=== PATIENT | male | born 1935 | race Caucasian/White ===

== ENCOUNTER 2017-04-27 14:10 | Emergency (ER) | payer OTHER ==
[~2017-04-27] VITALS: Ht 170.2 cm; Wt 86.1 kg
[~2017-04-27 14:10] MED LIST: NTRGSL/4 UT; SITA50TA3 PO; WARF3TAB6 PO
[2017-04-27 14:14] VITALS: TEMP 36.8; Ht 170.2 cm; Wt 86.1 kg
[2017-04-27 14:35] VITALS: O2SAT 97
[2017-04-27] MEDS ORDERED: FUROSEMIDE 40 MG/4 ML VIAL IV STA (14:41)
[2017-04-27 15:03] LABS: BASO % 0.7 %; BASO ABS # 0.04 K/uL (0-0.2); COMPLETE YES; EOS % 2.3 %; HEMATOCRIT 49.8 % (42-52); IG% 0.9 %; LYMPH % 25.5 %; LYMPH ABS # 1.47 K/uL (1.2-3.4); MEAN CELL VOLUME 89.7 fL (80-100); MEAN CORPUSCULAR HEMOGLOBIN 30.5 pg (25-34); MEAN CORPUSCULAR HGB CONC 33.9 g/dl (32-36); MEAN PLATELET VOLUME 9.7 fL (7.4-10.4); MONO % 10.1 %; NEUT % 60.5 %; PLATELET COUNT 143 K/uL (130-400); RED BLOOD COUNT 5.55 M/uL (4.7-6.1); WHITE BLOOD COUNT 5.77 K/uL (4.8-10.8)
--- NOTE | 2017-04-27 15:09 | DIAGNOSTIC IMAGING REPORT ---
CHEST ONE VIEW PORTABLE CLINICAL HISTORY: Shortness of breath and leg swelling COMPARISON STUDY: 06/20/2016 FINDINGS: The cardiac and mediastinal contours remain stable. There is mild superior mediastinal prominence. There is no overt failure. There is no focal pulmonary consolidation. There is minor basilar atelectasis. There are no significant pleural fusions.[ IMPRESSION: No active disease in the chest. Electronically signed by: Pilo Fowler M.D. 04/27/2017 3:07 PM Dictated Date/Time: 04/27/2017 3:06 PM
[2017-04-27 15:16] LABS: ALT/SGPT 22 U/L (12-78); AST/SGOT 13 U/L (15-37); BLOOD UREA NITROGEN 21 mg/dl (7-18); BUN/CREATININE RATIO 13.2 (10-20); CALCIUM 8.6 mg/dl (8.5-10.1); CARBON DIOXIDE 29 mmol/L (21-32); CHLORIDE 104 mmol/L (98-107); GLUCOSE 217 mg/dl (70-99); POTASSIUM 4.2 mmol/L (3.5-5.1); SODIUM 139 mmol/L (136-145)
[2017-04-27 15:22] LABS: ALB/GLOB RATIO 1.1 (0.9-2); ALKALINE PHOSPHATASE 81 U/L (45-117); CKMB/CK RATIO 4.5 (0-3.0)
[2017-04-27] MEDS ORDERED: ATV5X PO (16:00)
[2017-04-27] MEDS ORDERED: PRS5 PO (16:00)
[2017-04-27] MEDS ORDERED: CHOL1000 PO (16:00)
[2017-04-27] MEDS ORDERED: NVLGI/PEN SQ (16:00)
[2017-04-27] MEDS ORDERED: FLM4 PO (16:00)
[2017-04-27] MEDS ORDERED: LEVO25TA5 PO (16:00)
[2017-04-27] MEDS ORDERED: INSDGIPEN SQ (16:00)
[2017-04-27] MEDS ORDERED: SITA50TA PO (16:00)
[2017-04-27 16:48] VITALS: BP 108/74; PULSE 84; O2SAT 94
--- NOTE | 2017-04-27 18:29 | EMERGENCY ROOM VISIT NOTE ---
History Report prepared by Hussein: Sincere Fernandes Under the Supervision of: Dr. Panda Jang D.O. First contact with patient: 14:33 Chief Complaint: SHORTNESS OF BREATH Stated Complaint: SOB - SWLLING IN LEGS Nursing Triage Summary: triage note: pt reports "my feet are swollen." caregiver reports that pt has had increased shortness of breath bilat foot swelling since yesterday. History of Present Illness The patient is an 81 year old male who presents to the Emergency Room with complaints of constant shortness of breath starting this morning. Additionally the patient's family states that he has been having swollen legs for the past few days. The family states that the patient has a history of two heart attacks. The patient additionally almost fell a few days ago, and he has not been drinking very well recently. The patient does not smoke of use an inhaler, though he uses chewing tobacco. Additionally the patient was admitted in the hospital last year for a bad UTI, and he also was diagnosed with dementia. Also , he uses Flomax. Source of History: patient, family Onset: this morning Position: other Quality: other (shortness of breath) Timing: constant Note: Associated symptoms: Leg swelling Review of Systems See HPI for pertinent positives & negatives. A total of 10 systems reviewed and were otherwise negative. Past Medical & Surgical Medical Problems: (1) Coronary Atherosclerosis Of [place] Coronary Vessel (2) Diabetes (3) Hypertension Nos (4) [place] (myocardial infarction) (5) Tobacco Use Disorder Family History Diabetes mellitus FH: heart disease Hypertension Social History Smoking Status: Never Smoker Alcohol Use: none Housing Status: lives alone Occupation Status: retired Current/Historical Medications Scheduled Cholecalciferol (Vitamin D3), 2 TAB PO DAILY Finasteride (Finasteride), 1 TAB PO QPM Insulin Aspart (Novolog Flexpen), 8 UNITS SQ WM Insulin Glargine (Lantus Solostar), 16 UNITS SQ HS Levothyroxine Sodium (Levothyroxine Sodium), 1 TAB PO DAILYBB Nitroglycerin (Nitrostat), 0.4 MG UT PRN Sitagliptin Phosphate (Januvia), 1 TAB PO QAM Tamsulosin HCl (Tamsulosin HCl), 1 CAP PO QAM Scheduled PRN Lorazepam (Lorazepam), 1 TAB PO for Anxiety/Insomnia Allergies Coded Allergies: No Known Allergies (Unverified , 04/27/17) Physical Exam Vital Signs Date Time Temp Pulse Resp B/P (MAP) Pulse Ox O2 Delivery O2 Flow Rate FiO2 04/27/17 14:35 97 Room Air 04/27/17 14:30 82 04/27/17 14:21 83 04/27/17 14:14 36.8 80 26 122/80 94 Room Air Physical Exam CONSTITUTIONAL/VITAL SIGNS: Reviewed / noted above. GENERAL: Non-toxic in appearance. INTEGUMENTARY: Warm, dry, and [place]. HEAD: Normocephalic. EYES: without scleral icterus or trauma. ENT/OROPHARYNX: clear and moist. LYMPHADENOPATHY/NECK: Is supple without lymphadenopathy or meningismus. RESPIRATORY: Lungs clear and equal. CARDIOVASCULAR: Bilateral lower extremity edema. Regular rate and rhythm. GI/ABDOMEN: Soft and nontender. No organomegaly or pulsatile mass. No rebound or guarding. Normal bowel sounds. EXTREMITIES: Warm and well perfused. BACK: No CVA tenderness. NEUROLOGICAL: Intact without focal deficits. PSYCHIATRIC: normal affect. MUSCULOSKELETAL: Normally developed with good muscle tone. Medical Decision & Procedures ER Provider Diagnostic Interpretation: X ray results and stated below per my interpretation and radiology interpretation. CHEST ONE VIEW PORTABLE CLINICAL HISTORY: Shortness of breath and leg swelling COMPARISON STUDY: 06/20/2016 FINDINGS: The cardiac and mediastinal contours remain stable. There is mild superior mediastinal prominence. There is no overt failure. There is no focal pulmonary consolidation. There is minor basilar atelectasis. There are no significant pleural fusions.[ IMPRESSION: No active disease in the chest. Electronically signed by: Pilo Fowler M.D. 04/27/2017 3:07 PM Dictated Date/Time: 04/27/2017 3:06 PM Laboratory Results 04/27/17 14:30 Red Blood Count 5.55, Mean Corpuscular Volume 89.7, Mean Corpuscular Hemoglobin 30.5, Mean Corpuscular Hemoglobin Concent 33.9, Mean Platelet Volume 9.7, Neutrophils (%) (Auto) 60.5, Lymphocytes (%) (Auto) 25.5, Monocytes (%) (Auto) 10.1, Eosinophils (%) (Auto) 2.3, Basophils (%) (Auto) 0.7, Neutrophils # (Auto ) 3.50, Lymphocytes # (Auto) 1.47, Monocytes # (Auto) 0.58, Eosinophils # (Auto ) 0.13, Basophils # (Auto) 0.04 04/27/17 14:30 Test 04/27/17 14:30 White Blood Count 5.77 K/uL (4.8-10.8) Red Blood Count 5.55 M/uL (4.7-6.1) Hemoglobin 16.9 g/dL (14.0-18.0) Hematocrit 49.8 % (42-52) Mean Corpuscular Volume 89.7 fL (80-100) Mean Corpuscular Hemoglobin 30.5 pg (25-34) Mean Corpuscular Hemoglobin Concent 33.9 g/dl (32-36) Platelet Count 143 K/uL (130-400) Mean Platelet Volume 9.7 fL (7.4-10.4) Neutrophils (%) (Auto) 60.5 % Lymphocytes (%) (Auto) 25.5 % Monocytes (%) (Auto) 10.1 % Eosinophils (%) (Auto) 2.3 % Basophils (%) (Auto) 0.7 % Neutrophils # (Auto) 3.50 K/uL (1.4-6.5) Lymphocytes # (Auto) 1.47 K/uL (1.2-3.4) Monocytes # (Auto) 0.58 K/uL (0.11-0.59) Eosinophils # (Auto) 0.13 K/uL (0-0.5) Basophils # (Auto) 0.04 K/uL (0-0.2) RDW Standard Deviation 45.1 fL (36.4-46.3) RDW Coefficient of Variation 13.8 % (11.5-14.5) Immature Granulocyte % (Auto) 0.9 % Immature Granulocyte # (Auto) 0.05 K/uL (0.00-0.02) Anion Gap 6.0 mmol/L (3-11) Est Creatinine Clear Calc Drug Dose 37.3 ml/min Estimated GFR () 45.8 Estimated GFR (Non- 39.5 BUN/Creatinine Ratio 13.2 (10-20) Calcium Level 8.6 mg/dl (8.5-10.1) Total Bilirubin 0.6 mg/dl (0.2-1) Aspartate Amino Transf (AST/SGOT) 13 U/L (15-37) Alanine Aminotransferase (ALT/SGPT) 22 U/L (12-78) Alkaline Phosphatase 81 U/L (45-117) Total Creatine Kinase 85 U/L (39-308) Creatine Kinase MB 3.8 ng/ml (0.5-3.6) Creatine Kinase MB Ratio 4.5 (0-3.0) Troponin I < 0.015 ng/ml (0-0.045) Pro-B-Type Natriuretic Peptide 591 pg/ml (0-1800) Total Protein 6.8 gm/dl (6.4-8.2) Albumin 3.5 gm/dl (3.4-5.0) Globulin 3.3 gm/dl (2.5-4.0) Albumin/Globulin Ratio 1.1 (0.9-2) Laboratory results as stated above per my review. Medications Administered Medications (Trade) Dose Ordered Sig/Sharif Route Start Time Stop Time Status Last Admin Dose Admin Furosemide (Lasix Inj) 40 mg NOW STAT IV 04/27/17 14:41 04/27/17 14:42 DC 04/27/17 14:58 40 MG ECG Indication: SOB/dyspnea Rate (beats per minute): 75 Rhythm: sinus rhythm Findings: PVC, other (No acute injury) ED Course 1433: Previous medical records were reviewed. The patient was evaluated in room A12. A complete history and physical examination was performed. 1441: Lasix Inj 40mg IV 1620: On reevaluation, the patient is feeling well. I discussed the results and findings with the patient. He verbalized agreement of the treatment plan. He was discharged home. Medical Decision the differential was considered includes acute myocardial infarction, acute coronary syndrome, myocarditis, pericarditis, pericardial effusions /tamponade, esophageal perforation, pulmonary embolism, pneumonia, pneumothorax, cardiomyopathy, congestive heart, anemia , COPD/asthma exacerbation. This is an 81-year-old male who presents to the ED with a chief complaint of some shortness of breath. The patient's primary symptoms are that of lower extremity edema. The patient has some dementia and is unable to provide any significant history. The patient does report pedal edema but does not report that shortness of breath. The shortness of breath was per the caregiver, who is the [id number]. The patient is not on diuretics and the pedal edema was noticed yesterday by the [id number]. It is unclear exactly how long it is been going on. The caregiver was worried about congestive heart failure. The patient's exam reveals bilateral symmetric pedal edema. There is no other abnormalities on exam. Lungs were clear. CBC is normal, BUN is 21 and creatinine is 1.6. Complete metabolic panel was otherwise unremarkable. Glucose is 217. Troponin and BNP are within normal limits. Chest x-ray does not show acute disease. The patient was given IV Lasix while here. He was felt to be stable for discharge. Elevation and increase activity as recommended. The [id number] states that he is not very active and watches TV most of the day. He was felt to be stable for discharge and outpatient follow-up. Medication Reconcilliation Current Medication List: was personally reviewed by me Blood Pressure Screening Patient's blood pressure: Normal blood pressure Impression Primary Impression: Pedal edema Scribe Attestation The scribe's documentation has been prepared under my direction and personally reviewed by me in its entirety. I confirm that the note above accurately reflects all work, treatment, procedures, and medical decision making performed by me. Departure Information Dispostion Home / Self-Care Referrals Karl Enrique M.D. (PCP) Forms HOME CARE DOCUMENTATION FORM, IMPORTANT VISIT INFORMATION Patient Instructions ED Leg Swelling Bilateral, My [facility] Additional Instructions Your studies today did not suggest congestive heart failure. The edema is likely multifactorial. Recommend increase activity, elevation of legs, decreasing salt in diet and possibly compression stockings if symptoms persist. Follow-up with your doctor for recheck in one week. Return for any concerns or worsening.
== END 2017-04-27 16:50 | disposition home or self-care (01) ==
LOC: C.EDB 14:12 → C.EDA 16:50
DX: R60.9 Edema, unspecified (principal); I49.3 Ventricular premature depolarization; R06.02 Shortness of breath; I25.2 Old myocardial infarction; F17.200 Nicotine dependence, unspecified, uncomplicated; I25.10 Atherosclerotic heart disease of native coronary artery without angina pectoris; E11.9 Type 2 diabetes mellitus without complications; I10 Essential (primary) hypertension; F03.90 Unspecified dementia, unspecified severity, without behavioral disturbance, psychotic disturbance, mood disturbance, and anxiety; Z79.4 Long term (current) use of insulin; Z79.899 Other long term (current) drug therapy; Z87.440 Personal history of urinary (tract) infections; Z82.49 Family history of ischemic heart disease and other diseases of the circulatory system; Z83.3 Family history of diabetes mellitus

== ENCOUNTER 2017-05-20 14:29 | Observation (INO) | payer OTHER ==
[~2017-05-20] VITALS: Ht 170.2 cm; Wt 85.5 kg
[~2017-05-20 14:29] MED LIST changes: +ATV5X PO; +CHOL1000 PO; +FLM4 PO; +INSDGIPEN SQ; +LEVO25TA5 PO; +NVLGI/PEN SQ; +PRS5 PO; +SITA50TA PO; -SITA50TA3 PO; -WARF3TAB6 PO
[2017-05-20] MEDS ORDERED: FURO-85 PO (14:46)
[2017-05-20] MEDS ORDERED: POTA20TA16 PO (14:46)
[2017-05-20] MEDS ORDERED: SODIUM CHLORIDE 0.9% 1000ML 1,000 ML IV ONE (15:00)
--- NOTE | 2017-05-20 15:30 | DIAGNOSTIC IMAGING REPORT ---
SINGLE VIEW CHEST CLINICAL HISTORY: Dyspnea. FINDINGS: An AP, portable, upright chest radiograph is compared to study dated 04/27/2017. The examination is degraded by portable technique and patient rotation. The heart is enlarged and there is atherosclerotic calcification of the thoracic aorta. Chronic interstitial thickening is similar to previous. Subpleural opacities are identified in the right upper lung. Bibasilar atelectasis is observed. No large pleural effusion or pneumothorax is seen. The skeletal structures are osteopenic. The bony thorax is grossly intact. IMPRESSION: 1. Cardiomegaly without radiographic evidence of congestive failure. 2. There are patchy airspace opacities in the right upper lung. This likely represents a mild infectious/inflammatory pneumonitis. Clinical correlation will be required and radiographic follow-up to resolution is recommended. Electronically signed by: Shaquille Dixon M.D. 05/20/2017 3:29 PM Dictated Date/Time: 05/20/2017 3:27 PM
[2017-05-20 15:55] LABS: BASO % 0.4 %; BASO ABS # 0.03 K/uL (0-0.2); COMPLETE YES; EOS % 2.5 %; HEMATOCRIT 49.7 % (42-52); IG% 0.6 %; LYMPH % 20.9 %; LYMPH ABS # 1.41 K/uL (1.2-3.4); MEAN CELL VOLUME 89.4 fL (80-100); MEAN CORPUSCULAR HEMOGLOBIN 30.6 pg (25-34); MEAN CORPUSCULAR HGB CONC 34.2 g/dl (32-36); MEAN PLATELET VOLUME 9.9 fL (7.4-10.4); MONO % 12.1 %; NEUT % 63.5 %; PLATELET COUNT 145 K/uL (130-400); RED BLOOD COUNT 5.56 M/uL (4.7-6.1); WHITE BLOOD COUNT 6.76 K/uL (4.8-10.8)
[2017-05-20 16:08] LABS: URINE APPEARANCE CLEAR (CLEAR); URINE BILIRUBIN NEG (NEG); URINE COLOR YELLOW; URINE NITRITE NEG (NEG); URINE SPECIFIC GRAVITY 1.025 (1.000-1.030); UROBILINOGEN NEG (NEG)
--- NOTE | 2017-05-20 16:09 | DIAGNOSTIC IMAGING REPORT ---
HEAD CT NONCONTRAST CT DOSE: 638.56 mGycm HISTORY: hx subarachnoid hemorrhage; dizziness, "not self" TECHNIQUE: Multiaxial CT images of the head were performed without the use of intravenous contrast. Automated exposure control was utilized for this study. A dose lowering technique was utilized adhering to the principles of ALARA. Comparison: Head CT 06/20/2016. Findings: Mild mucosal thickening within the paranasal sinuses. A few opacified left inferior mastoid air cells. The calvarium and skull base are intact. No mass, midline shift, or acute infarct. Mild atrophy and microvascular ischemic changes are again noted. 4 mm punctate slightly hyperdense focus within the left middle cerebellar peduncle on image 7. There is a 5 mm slightly hyperdense focus within the left temporal lobe on image 14. There is a punctate hyperdense focus within the right high convexity in image 22. These remain stable compared the prior study and likely represent small cavernoma as. The trace subarachnoid hemorrhage within the left sylvian fissure has resolved. No acute hemorrhage identified. Prominent basilar artery remains stable. Impression: 1. No acute intracranial abnormality. 2. There are total of 3 punctate slightly hyperdense foci within the brain with the largest in the left temporal lobe measuring 5 mm. Given the long-term stability these are consistent with cavernomas. The trace subarachnoid hemorrhage within the left sylvian fissure on the prior study has resolved. No acute intracranial hemorrhage identified. 3. Mild sinus disease as described above. Electronically signed by: Sidney Street M.D. 05/20/2017 4:08 PM Dictated Date/Time: 05/20/2017 4:02 PM
[2017-05-20 16:14] LABS: ALT/SGPT 23 U/L (12-78); AST/SGOT 17 U/L (15-37); BLOOD UREA NITROGEN 21 mg/dl (7-18); BUN/CREATININE RATIO 12.5 (10-20); CALCIUM 8.7 mg/dl (8.5-10.1); CARBON DIOXIDE 28 mmol/L (21-32); CHLORIDE 103 mmol/L (98-107); GLUCOSE 186 mg/dl (70-99); SODIUM 138 mmol/L (136-145)
[2017-05-20 16:17] LABS: ALKALINE PHOSPHATASE 82 U/L (45-117)
[2017-05-20 16:18] LABS: MANUAL MICROSCOPIC REQUIRED? NO; REVIEW REQ? NO
[2017-05-20] MEDS ORDERED: MECLIZINE HCL 25 MG TAB PO STA (16:43)
--- NOTE | 2017-05-20 16:43 | EMERGENCY ROOM VISIT NOTE ---
ED Visit Note First contact with patient: 14:45 The patient was seen and examined with Cody Huang PA-C. I agree with the history, physical and findings. Please see the note for disposition and details. When the patient was symptomatic his daughter noted his heart rate was 45. This is much lower than usual. The patient is not currently on a beta norah. Cardiology was consulted and recommended observation for further diagnosis.
[2017-05-20] MEDS ORDERED: MECL1TAB42 PO (16:45)
[2017-05-20] MEDS ORDERED: ONDANSETRON INJ 2 MG/ML 2 ML VIAL IV PRN (18:30)
[2017-05-20] MEDS ORDERED: POLYETHYLENE (MIRALAX) 17 GM PACK PO PRN (18:30)
[2017-05-20] MEDS ORDERED: ACETAMINOPHEN 325 MG TAB PO PRN (18:30)
[2017-05-20] MEDS ORDERED: IV FLUIDS COMPLETED PRN (19:00)
[2017-05-20 19:21] LABS: PROTHROMBIN TIME (PATIENT) 10.9 SECONDS (9.0-12.0)
[2017-05-20 21:00] VITALS: BP 125/71; PULSE 73; TEMP 36.7; O2SAT 98; Ht 170.2 cm; Wt 85.5 kg
[2017-05-20] MEDS: PATIENT'S HEIGHT AND/OR WEIGHT NEEDED SCH ×2 (21:18→22:00)
[2017-05-20] MEDS ORDERED: POTASSIUM CHLORIDE 20 MEQ TABCR PO PRN (21:45)
[2017-05-20] MEDS ORDERED: GLUCOSE 10 TABS/TUBE PO PRN (21:45)
[2017-05-20] MEDS ORDERED: GLUCAGON FOR INJ 1 MG VIAL SQ PRN (21:45)
[2017-05-20] MEDS ORDERED: LORAZEPAM 0.5 MG TAB PO PRN (21:45)
[2017-05-20] MEDS ORDERED: FUROSEMIDE 20 MG TAB PO PRN (21:45)
[2017-05-20] MEDS ORDERED: GLUCOSE 40% GEL 15 GM TUBE PO PRN (21:45)
[2017-05-20] MEDS ORDERED: MECLIZINE HCL 25 MG TAB PO PRN (21:45)
[2017-05-20] MEDS ORDERED: FINASTERIDE 5 MG TAB PO SCH (21:45)
[2017-05-20] MEDS ORDERED: INSULIN GLARGINE SOLOSTAR 100 UNITS/ML 3 ML PEN SQ SCH (21:45)
[2017-05-20] MEDS ORDERED: DEXTROSE 50% 50 ML SYR IV PRN (21:45)
[2017-05-20] MEDS ORDERED: NITROGLYCERIN 0.4 MG SL PER TAB CHARGE UT PRN (21:45)
--- NOTE | 2017-05-20 22:16 | History and Physical ---
History & Physical Date & Time of Service: May 20, 2017 at 21:49 Chief Complaint: Bradycardia, Dizziness Primary Care Physician: Karl Enrique M.D. History of Present Illness Source: patient, family, clinic records, hospital records Patient is an 81 yo male who presented to the hospital for evaluation after he was found to be very dizzy at home today. His daughter in law states she checked his vitals and his BP was fine but his HR was in the 40's; she rechecked it again after several minutes and it was back up to normal but the patient continue to have dizziness. He had difficulty ambulating and had to grab onto objects to keep himself from falling. He states he feels much better now and wants to go home. He has not had any recent medication changes. The patients son and brother are there as well and state the patient is not one to complain unless things are really bothering him, but he has had no complaints in the days leading up to today. A few weeks ago he was seen in the ER for increased LE edema but no other symptoms. Patient denies any CP, SOB, palpitations, nausea, diaphoresis, SOLER, blurry vision. No recent changes to bowel or bladder habits. Appetite and weight have been stable. No recent falls or trauma. The patient has no other complaints. His family has not noticed any focal neurologic signs, he has dementia but he is at baseline with behavior and mentation. The patients daughter in law reports the patient is on finasteride and that seems to help lessen his habit of inappropriate groping of women, and she strongly encourages female staff to be aware that this has been an issue in the past, but the finasteride seems to help a bit. Past Medical/Surgical History Medical Problems: Ischemic cardiomyopathy Systolic CHF Subarachnoid hemorrhage Diabetes [place] (myocardial infarction) Hypothyroidism Right coronary artery thrombus Vascular dementia Family History Diabetes mellitus FH: heart disease Hypertension Social History Smoking Status: Former Smoker Occupational Status: retired Multi-Drug Resistant Organisms History of MDRO: No Allergies Coded Allergies: No Known Allergies (Unverified , 05/20/17) Home Medications Scheduled Cholecalciferol (Vitamin D3), 2,000 UNITS PO DAILY Finasteride (Finasteride), 5 MG PO QPM Insulin Aspart (Novolog Flexpen), 8 UNITS SQ WM Insulin Glargine (Lantus Solostar), 16 UNITS SQ HS Levothyroxine Sodium (Levothyroxine Sodium), 25 MCG PO DAILYBB Nitroglycerin (Nitrostat), 0.4 MG UT PRN Sitagliptin Phosphate (Januvia), 50 MG PO QAM Tamsulosin HCl (Tamsulosin HCl), 0.4 MG PO QAM Scheduled PRN Furosemide (Lasix), 20 MG PO UD PRN for EDEMA Lorazepam (Lorazepam), 1 TAB PO for Anxiety/Insomnia Potassium Ext Rel (Klor-Con), 20 MEQ PO UD PRN for EDEMA Review of Systems A full 10 systems were reviewed and the pertinent positives and negatives are listed above in HPI. Physical Exam Vital Signs Date Time Temp Pulse Resp B/P (MAP) Pulse Ox O2 Delivery O2 Flow Rate FiO2 05/20/17 21:00 36.7 73 18 125/71 98 Room Air 05/20/17 19:00 75 05/20/17 18:46 134/81 05/20/17 18:30 75 87 05/20/17 18:00 76 19 96 05/20/17 17:51 77 05/20/17 17:31 66 18 134/81 96 Room Air 05/20/17 15:33 76 22 116/78 96 Room Air 82 111/74 84 101/74 05/20/17 14:33 36.5 82 18 121/71 95 Room Air General Appearance: WD/WN, no apparent distress Head: normocephalic, atraumatic Eyes: PERRL, EOMI, sclerae normal, + pertinent finding (no conjunctivael erythema; eyelids within normal limits) ENT: hearing grossly normal Neck: supple, no adenopathy, no JVD, no carotid bruits, trachea midline Respiratory/Chest: chest non-tender, no respiratory distress, no accessory muscle use, + decreased breath sounds, + crackles Cardiovascular: regular rate, rhythm, no edema, no gallop, no JVD, + systolic murmur, + extra beats Abdomen/GI: normal bowel sounds, non tender, soft, + pertinent finding (no hepatosplenomegaly) Back: no CVA tenderness, no muscle spasm Extremities/Musculoskelatal: normal inspection, no calf tenderness, normal capillary refill, no pedal edema Neurologic/Psych: no motor/sensory deficits, alert, normal mood/affect, oriented x 3 Skin: normal color, warm/dry, no rash Diagnostics Laboratory Results Results Past 24 Hours Test 05/20/17 15:25 05/20/17 15:28 05/20/17 15:35 05/20/17 16:03 Range/Units Prothrombin Time 10.9 9.0-12.0 SECONDS Prothromb Time International Ratio 1.0 0.9-1.1 Activated Partial Thromboplast Time 27.0 21.0-31.0 SECONDS Partial Thromboplastin Ratio 1.0 White Blood Count 6.76 4.8-10.8 K/uL Red Blood Count 5.56 4.7-6.1 M/uL Hemoglobin 17.0 14.0-18.0 g/dL Hematocrit 49.7 42-52 % Mean Corpuscular Volume 89.4 80-100 fL Mean Corpuscular Hemoglobin 30.6 25-34 pg Mean Corpuscular Hemoglobin Concent 34.2 32-36 g/dl Platelet Count 145 130-400 K/uL Mean Platelet Volume 9.9 7.4-10.4 fL Neutrophils (%) (Auto) 63.5 % Lymphocytes (%) (Auto) 20.9 % Monocytes (%) (Auto) 12.1 % Eosinophils (%) (Auto) 2.5 % Basophils (%) (Auto) 0.4 % Neutrophils # (Auto) 4.29 1.4-6.5 K/uL Lymphocytes # (Auto) 1.41 1.2-3.4 K/uL Monocytes # (Auto) 0.82 0.11-0.59 K/uL Eosinophils # (Auto) 0.17 0-0.5 K/uL Basophils # (Auto) 0.03 0-0.2 K/uL RDW Standard Deviation 44.5 36.4-46.3 fL RDW Coefficient of Variation 13.7 11.5-14.5 % Immature Granulocyte % (Auto) 0.6 % Immature Granulocyte # (Auto) 0.04 0.00-0.02 K/uL Sodium Level 138 136-145 mmol/L Potassium Level 4.0 3.5-5.1 mmol/L Chloride Level 103 98-107 mmol/L Carbon Dioxide Level 28 21-32 mmol/L Anion Gap 7.0 3-11 mmol/L Blood Urea Nitrogen 21 7-18 mg/dl Creatinine 1.70 0.60-1.40 mg/dl Estimated GFR () 42.6 Estimated GFR (Non- 36.7 BUN/Creatinine Ratio 12.5 10-20 Random Glucose 186 70-99 mg/dl Calcium Level 8.7 8.5-10.1 mg/dl Total Bilirubin 0.6 0.2-1 mg/dl Direct Bilirubin < 0.1 0-0.2 mg/dl Aspartate Amino Transf (AST/SGOT) 17 15-37 U/L Alanine Aminotransferase (ALT/SGPT) 23 12-78 U/L Alkaline Phosphatase 82 45-117 U/L Total Protein 6.7 6.4-8.2 gm/dl Albumin 3.3 3.4-5.0 gm/dl Urine Color YELLOW Urine Appearance CLEAR CLEAR Urine pH 5.0 4.5-7.5 Urine Specific [place] 1.025 1.000-1.030 Urine Protein NEG NEG Urine Glucose (UA) 3+ NEG Urine Ketones TRACE NEG Urine Occult Blood NEG NEG Urine Nitrite NEG NEG Urine Bilirubin NEG NEG Urine Urobilinogen NEG NEG Urine Leukocyte Esterase NEG NEG Bedside Troponin I < 0.030 0-0.045 ng/ml Test 05/20/17 20:22 Range/Units Bedside Glucose 120 70-99 mg/dl Impression Assessment and Plan DIZZINESS: with bradycardia at home -monitor in tele -not on any BB or CCB -Cardiology consulted -obtain TTE -check serial CM -orthostatics negative x1 -has had similar episode on the past PREVIOUS HX OF HYPERTENSION: -monitor -not on any medications at home for this per the patient and family; patient has a hx of noncompliance CHRONIC SYSTOLIC HEART FAILURE SECONDARY TO ISCHEMIC CARDIOMYOPATHY WITH LAST KNOWN EJECTION FRACTION OF 20%: -appears euvolemic at this time -Heart failure is compensated -will obtain and TTE -daily weights and I's and O's HISTORY OF CORONARY ARTERY DISEASE WITH A HISTORY OF RIGHT CORONARY ARTERY THROMBUS. -no acute EKG changes -was on anticoagulation with Coumadin but was stopped a year ago following the subarachnoid hemorrhage DM TYPE II: -resume home meds januvia + insulin -place on sliding scale while admitted HYPOTHYROID: -continue levothyroxine BPH: -continue flomax and finasteride VASCULAR DEMENTIA: -has been stable; is on finasteride to help with inappropriate sexual behaviors which has lessened this behavior per family Advanced Directives Existing Living Will: No Existing Power of Metal Roofing Mechanic: Yes VTE Prophylaxis VTE Risk Assessment Done? Y/N: Yes Risk Level: Moderate
[2017-05-20] MEDS: INSULIN ASPART 100 UNITS/ML 3 ML PEN SQ SCH (22:30)
[2017-05-20] MEDS ORDERED: ENOXAPARIN 40 MG/0.4 ML SYR SC SCH (22:30)
[2017-05-20 23:48] VITALS: BP 103/74; PULSE 66; TEMP 36.8; O2SAT 95
--- NOTE | 2017-05-21 00:32 | EMERGENCY ROOM VISIT NOTE ---
ED Visit Note First contact with patient: 14:45 Chief Complaint: Dizzy and feel short of breath History of Present Illness: Mr. Jones is an 81-year-old white male who is brought into the ED via wheelchair accompanied by his [id number] complaining of dizziness and shortness of breath. Historically patient has a history of ischemic cardiac myopathy, subarachnoid hemorrhage, myocardial infarction and right coronary artery thrombus. Patient reports he has been feeling well over the last few days. Patient reports he awoke this morning and was feeling dizzy; he was unable to explain his symptoms of dizziness, and was feeling short of breath. Patient sister-in- law reports that when he was walking this morning he was using his arms to balance and support himself and he was breathing through pursed lips. After he started explaining his symptoms she checked his blood pressure with an automatic cuff and she reports that he was bradycardic with a heart rate in the mid to low 40s. She does report she checked this multiple times over an hour and he remained bradycardic but was not hypotensive. At this point in time she elected to bring her [id number] to the hospital for further evaluation and care. Currently patient is complaining of shortness of breath and dizziness. He reports ambulation and movements of the head increases his dizziness. He has not identified any alleviating factors related to the dizziness. He has not taken a medication for dizziness prior to arrival at the hospital. Patient denies any associated symptoms with his dizziness including headache, visual changes, hearing changes, tinnitus, upper respiratory tract symptoms, neck pain/ stiffness, cough, wheezing, chest pain, palpitations, abdominal pain, nausea, vomiting, extremity weakness/numbness/tingling. Additionally he complains of shortness of breath. He feels like ambulation increases his short of breath and when he relaxes he has relief of his shortness of breath. He denies previous similar episodes of shortness of breath. He has not taken any medications or therapies for shortness of breath. He denies symptoms noted above and palpitations, orthopnea, dependent edema, previous clots, claudication, cramping, recent surgery/extended travel. Review of Systems: As noted above in history of present illness. All body systems were reviewed and found to be negative as noted above. Past Medical History: As previously noted, systolic congestive heart failure, hypothyroidism, vascular dementia. Current Medications: Medications Dose Route/Sig Max Daily Dose Days Date Category Dose Instructions Klor-Con (Potassium Chloride) 20 Meq Tabcr 20 Meq PO UD PRN 05/20/17 Reported NEEDED FOR WEIGHT OVER 188 POUNDS Lasix (Furosemide) 20 Mg Tab 20 Mg PO UD PRN 05/20/17 Reported NEEDED FOR WEIGHT OVER 188 POUNDS Vitamin D3 (Cholecalciferol) 1,000 Unit Tab 2,000 Units PO DAILY 04/27/17 Reported Lantus Solostar (Insulin Glargine) 100 Unit/Ml Inj 16 Units SQ HS 04/27/17 Reported Novolog Flexpen (Insulin Aspart) 100 Units/Ml Inj 8 Units SQ WM 04/27/17 Reported Lorazepam 0.5 Mg Tab 1 Tab PO PRN 04/27/17 Reported Finasteride 5 Mg Tab 5 Mg PO QPM 04/27/17 Reported Tamsulosin HCl 0.4 Mg Cap 0.4 Mg PO QAM 04/27/17 Reported Levothyroxine Sodium 25 Mcg Tab 25 Mcg PO DAILYBB 04/27/17 Reported Januvia (Sitagliptin Phosphate) 50 Mg Tab 50 Mg PO QAM 04/27/17 Reported Nitrostat (Nitroglycerin) 0.4 Mg Tab 0.4 Mg UT PRN 02/23/15 Reported Allergies to Medications: Patient and family members denied. Social History: Patient is currently retired; he does chew tobacco; he lives with his brother and [id number] and feels safe in his home environment. Physical Examination: Vital Signs: Date Time Temp Pulse Resp B/P (MAP) Pulse Ox O2 Delivery O2 Flow Rate FiO2 05/20/17 18:30 75 87 05/20/17 18:00 76 19 96 05/20/17 17:51 77 05/20/17 17:31 66 18 134/81 96 Room Air 05/20/17 15:33 76 22 116/78 96 Room Air 82 111/74 84 101/74 05/20/17 14:33 36.5 82 18 121/71 95 Room Air GENERAL: 81-year-old male in no acute distress, nontoxic-appearing, afebrile and hemodynamically stable. NEUROLOGICAL: Awake, alert and oriented to person, place but not time. Answering questions appropriately and following commands. Cranial nerves II through XII grossly intact. Good hand eye coordination. No focal motor sensory deficits. SKIN: Warm, dry and pink. No soft tissue eruptions or trauma noted. HEENT: Atraumatic and normocephalic. Skull: No bony deformity, bony crepitus, swelling or ecchymosis. No raccoon's eyes or rosa signs. No drainage from the ears of the nostril; no hemotympanum. Face: No signs of facial trauma. PERRLA. EOMI with a few beats of horizontal nystagmus. Sclera white and conjunctiva pink. No malocclusion. No intraoral trauma. Airway patent. Speech is slightly pressured but normal. No lymphadenopathy. Trachea midline. No jugular venous distention. No carotid bruits. THORAX: Lungs sounds are clear to auscultation and only decreased in the bases. Equal bilaterally with symmetrical chest wall. No wheezing, rales or rhonchi. No crepitus, tenderness, subcutaneous air or deformities noted. HEART: Regular rate and rhythm. Soft systolic murmur heard over the left sternal border. No gallops, rubs or murmurs are appreciated. PMI is not displaced. No lifts, heaves or thrills. ABDOMEN: Flat, soft and nontender. Positive bowel sounds in all quadrants. No palpable masses, guarding, rigidity or organomegaly. EXTREMITIES: Moves all extremities well on command and with purpose. All distal neurovascular statuses are intact and equal bilaterally. No dependent edema. No calf tenderness or cords. ED Course: Patient is assessed as noted above. Patient's medications list were reviewed. Laboratory Testing: Test 05/20/17 15:25 05/20/17 15:28 05/20/17 15:35 05/20/17 16:03 Range/Units Prothrombin Time 10.9 9.0-12.0 SECONDS Prothromb Time International Ratio 1.0 0.9-1.1 Activated Partial Thromboplast Time 27.0 21.0-31.0 SECONDS Partial Thromboplastin Ratio 1.0 White Blood Count 6.76 4.8-10.8 K/uL Red Blood Count 5.56 4.7-6.1 M/uL Hemoglobin 17.0 14.0-18.0 g/dL Hematocrit 49.7 42-52 % Mean Corpuscular Volume 89.4 80-100 fL Mean Corpuscular Hemoglobin 30.6 25-34 pg Mean Corpuscular Hemoglobin Concent 34.2 32-36 g/dl Platelet Count 145 130-400 K/uL Mean Platelet Volume 9.9 7.4-10.4 fL Neutrophils (%) (Auto) 63.5 % Lymphocytes (%) (Auto) 20.9 % Monocytes (%) (Auto) 12.1 % Eosinophils (%) (Auto) 2.5 % Basophils (%) (Auto) 0.4 % Neutrophils # (Auto) 4.29 1.4-6.5 K/uL Lymphocytes # (Auto) 1.41 1.2-3.4 K/uL Monocytes # (Auto) 0.82 0.11-0.59 K/uL Eosinophils # (Auto) 0.17 0-0.5 K/uL Basophils # (Auto) 0.03 0-0.2 K/uL RDW Standard Deviation 44.5 36.4-46.3 fL RDW Coefficient of Variation 13.7 11.5-14.5 % Immature Granulocyte % (Auto) 0.6 % Immature Granulocyte # (Auto) 0.04 0.00-0.02 K/uL Sodium Level 138 136-145 mmol/L Potassium Level 4.0 3.5-5.1 mmol/L Chloride Level 103 98-107 mmol/L Carbon Dioxide Level 28 21-32 mmol/L Anion Gap 7.0 3-11 mmol/L Blood Urea Nitrogen 21 7-18 mg/dl Creatinine 1.70 0.60-1.40 mg/dl Estimated GFR () 42.6 Estimated GFR (Non- 36.7 BUN/Creatinine Ratio 12.5 10-20 Random Glucose 186 70-99 mg/dl Calcium Level 8.7 8.5-10.1 mg/dl Total Bilirubin 0.6 0.2-1 mg/dl Direct Bilirubin < 0.1 0-0.2 mg/dl Aspartate Amino Transf (AST/SGOT) 17 15-37 U/L Alanine Aminotransferase (ALT/SGPT) 23 12-78 U/L Alkaline Phosphatase 82 45-117 U/L Total Protein 6.7 6.4-8.2 gm/dl Albumin 3.3 3.4-5.0 gm/dl Urine Color YELLOW Urine Appearance CLEAR CLEAR Urine pH 5.0 4.5-7.5 Urine Specific Carlos 1.025 1.000-1.030 Urine Protein NEG NEG Urine Glucose (UA) 3+ NEG Urine Ketones TRACE NEG Urine Occult Blood NEG NEG Urine Nitrite NEG NEG Urine Bilirubin NEG NEG Urine Urobilinogen NEG NEG Urine Leukocyte Esterase NEG NEG Bedside Troponin I < 0.030 0-0.045 ng/ml Chest X-Rays: Were read by myself and the radiologist showing cardiomegaly without evidence of congestive failure and the radiologist notes patchy airspace opacities sees in the right upper lobe likely representing mild infectious/inflammatory pneumonitis. EKG: Was read by myself and reviewed with ; and shows sinus rhythm with frequent unifocal PVCs. Poor R-wave progression. No ischemic changes noted. Compared to previous and shows fusion complexes X is no longer present and Primus chore supraventricular complexes no longer present. There is a new left anterior fascicular block. Noncontrast Head CT: Was reviewed by myself and read by the radiologist showing no acute intracranial abnormalities. Subarachnoid hemorrhage resolved, mild sinus disease and 3 punctate hypodense foci within the brain with long-term stability consistent with cavernoma. Patient was hydrated with normal saline and given 25 mg of meclizine by mouth for dizziness. Patient had resolution of dizziness and shortness of breath. A pulse oximetry ambulation trial was performed and patient had no drops in his oxygen saturation saturations, heart rate and appeared to walk without difficulty. Patient's case was consulted with Dr. Baig, cardiology; he recommended observation stay and echocardiogram in the morning. Patient was educated about Dr. Baig's recommendation. [facility] Patient and family members were educated about today's findings. Clinical Impression: Bradycardia. Dizziness. Shortness of breath, resolved. Decision-Making: Initially my differential diagnosis I considered acute coronary syndrome, pneumothorax, pneumonia, pulmonary embolism, labyrinthitis, subarachnoid hemorrhage and other causes. Disposition and Plan: [facility] be [facility]; please see their notes and orders for final disposition and plan.
[2017-05-21 01:04] LABS: CKMB/CK RATIO 3.9 (0-3.0)
[2017-05-21 03:51] VITALS: BP 103/58; PULSE 71; TEMP 36.5; O2SAT 95
[2017-05-21] MEDS ORDERED: LEVOTHYROXINE 25 MCG TAB PO SCH (06:00)
[2017-05-21 06:19] LABS: BUN/CREATININE RATIO 15.9 (10-20); CALCIUM 8.3 mg/dl (8.5-10.1); CREATININE 1.3 mg/dl (0.60-1.40); POTASSIUM 3.8 mmol/L (3.5-5.1)
[2017-05-21 06:24] LABS: CHOLESTEROL/HDL RATIO 6.7
[2017-05-21] MEDS ORDERED: PERFLUTREN LIPID MICROSPHERE (DEFINITY) IV ONE (07:25)
[2017-05-21] MEDS: INSULIN ASPART 100 UNITS/ML 3 ML PEN SQ SCH ×2 (07:39→11:00)
[2017-05-21 07:51] VITALS: BP 100/56; PULSE 77; TEMP 36.8; O2SAT 93
[2017-05-21] MEDS ORDERED: CHOLECALCIFEROL 1000 INTER.UNIT TAB PO SCH (09:00)
[2017-05-21] MEDS ORDERED: TAMSULOSIN HCL 0.4 MG CAP PO SCH (09:00)
[2017-05-21] MEDS ORDERED: SITAGLIPTIN 25 MG TAB PO SCH (09:00)
--- NOTE | 2017-05-21 09:00 | ECHOCARDIOGRAM REPORT ---
*NOTICE TO RECEIVING [employer] This information is strictly Confidential and protected under [place] law. [place] law prohibits you from making any further disclosure of this information unless further disclosure is expressly permitted by the written consent of the person to whom it pertains or is authorized by law. A general authorization for the release of medical or other information is not sufficient for this purpose. Hospital accepts no responsibility if the information is made available to any other person, INCLUDING THE PATIENT. Interpretation Summary * Name: AKIN GARIBAY JR Study Date: 05/21/2017 06:53 AM BP: 103/58 mmHg * Patient Location: C.2E\S\E208\S\1 HR: 71 * : 1935 (M/d/yyyy) Gender: Male Height: 67 in * Age: 81 yrs Ethnicity: CA Weight: 188 lb * Ordering Physician: Laila Cottrell * Referring Physician: Self, Referred * Performed By: Kelly Giles RDCS * * Reason For Study: SYNCOPE * BSA: 2.0 m2 * -- Conclusions -- * Mildly dilated LV chamber size with global wall thinning. * Severely reduced LV systolic function with severe global hypokinesis, EF 20-25%. * There is a large apical thrombus. * Mild to moderate mitral regurgitation. Procedure Details * A contrast injection of Definity was performed to improve assessment of LV function. * Contrast was injected into an intravenous site in the left arm. * One vial of Definity ultrasound contrast was diluted in normal saline to a total volume of 10 ml. A total of '2' ml of solution was administered during imaging. * Lot # [id number] of Definity utilized for procedure. * Expiration date JUN 30. * The attending nurse who injected the contrast agent was STEWART KELSEY. Left Ventricle * The left ventricle is mildly dilated. * There is a large apical thrombus. * There is global thinning of the left ventricular martinez. * Ejection Fraction = 20-25%. * Left ventricular systolic function is severely reduced. * There is severe global hypokinesis of the left ventricle. Right Ventricle * The right ventricular cavity size is normal (basal dimension <4.2 cm in right ventricular apical 4-chamber view). * The right ventricular systolic function is normal as assessed by tricuspid annular plane systolic excursion (TAPSE) (normal >1.5 cm). Atria * The left atrial size is normal. * Right atrial size is normal. * No ASD detected; PFO is not assessed. Mitral Valve * The mitral valve anatomy is normal. * There is no mitral valve stenosis. * There is mild to moderate mitral regurgitation. Tricuspid Valve * The tricuspid valve is normal in structure and function. Aortic Valve * The aortic valve is normal in structure and function. Pulmonic Valve * The pulmonary valve is not well seen, but the Doppler examination is normal without significant regurgitation or stenosis. Great Vessels * The aortic root is normal size. Pericardium/Pleural * There is no pericardial effusion. MMode 2D Measurements and Calculations IVSd 1.1 cm IVSs 1.5 cm LVIDd 4.7 cm LVIDs 3.8 cm LVPWd 0.95 cm LVPWs 1.7 cm IVS/LVPW 1.1 FS 19.2 % EDV(Teich) 100.7 ml ESV(Teich) 60.7 ml EF(Teich) 39.6 % EDV(cubed) 101.6 ml ESV(cubed) 53.5 ml EF(cubed) 47.3 % % IVS thick 38.7 % % LVPW thick 79.6 % LV mass(C)d 166.8 grams LV mass(C)dI 84.7 grams/m\S\2 LV mass(C)s 239.6 grams LV mass(C)sI 121.6 grams/m\S\2 SV(Teich) 39.9 ml SI(Teich) 20.3 ml/m\S\2 SV(cubed) 48.1 ml SI(cubed) 24.4 ml/m\S\2 Ao root diam 3.6 cm Ao root area 10.4 cm\S\2 LA dimension 3.5 cm LA/Ao 0.96 LVAd ap4 35.0 cm\S\2 LVLd ap4 9.0 cm EDV(MOD-sp4) 112.6 ml EDV(sp4-el) 115.4 ml LVAs ap4 26.7 cm\S\2 LVLs ap4 8.7 cm ESV(MOD-sp4) 67.7 ml ESV(sp4-el) 69.8 ml EF(MOD-sp4) 39.9 % EF(sp4-el) 39.5 % LVAd ap2 38.0 cm\S\2 LVLd ap2 9.0 cm EDV(MOD-sp2) 129.3 ml EDV(sp2-el) 135.8 ml LVAs ap2 28.7 cm\S\2 LVLs ap2 8.5 cm ESV(MOD-sp2) 77.3 ml ESV(sp2-el) 82.3 ml EF(MOD-sp2) 40.2 % EF(sp2-el) 39.4 % LVLd %diff 0.30 % EDV(MOD-bp) 122.5 ml LVLs %diff -2.27 % ESV(MOD-bp) 72.4 ml EF(MOD-bp) 40.9 % SV(MOD-sp4) 44.9 ml SI(MOD-sp4) 22.8 ml/m\S\2 SV(MOD-sp2) 52.0 ml SI(MOD-sp2) 26.4 ml/m\S\2 SV(MOD-bp) 50.0 ml SI(MOD-bp) 25.4 ml/m\S\2 SV(sp4-el) 45.5 ml SI(sp4-el) 23.1 ml/m\S\2 SV(sp2-el) 53.5 ml SI(sp2-el) 27.2 ml/m\S\2 Doppler Measurements and Calculations MV E max shraron 62.5 cm/sec MV dec time 0.30 sec Ao V2 max 95.1 cm/sec Ao max PG 3.6 mmHg Ao max PG (full) 1.3 mmHg LV V1 max PG 2.3 mmHg LV V1 max 76.2 cm/sec
--- NOTE | 2017-05-21 10:58 | CARDIOLOGY CONSULTATION ---
DATE OF CONSULTATION: 05/21/2017 [facility]ULT[facility] FOR: [facility] REASON FOR CONSULTATION: Abnormal echocardiogram. HISTORY OF PRESENT ILLNESS: Mr. Jones is an 81-year-old male patient with a history of advanced dementia. The patient is not a good historian and the information is taken from the medical record. I last saw this patient in 2013. At that time, he presented late with an inferior posterior wall myocardial infarction. The patient underwent a cardiac catheterization at that time which revealed significant 2-vessel coronary artery disease with evidence of a recent infarct to the right coronary artery with heavy thrombus burden. The patient was also noted to have an ischemic cardiomyopathy. Recommendations were for medical management including long-term anticoagulation with warfarin. Unfortunately, following that admission, the patient was lost to followup. He was brought by his family to the Emergency Department with complaints of dizziness. In reviewing the records, he was admitted to [facility] in 2015 with a diagnosis of disorientation. At first it was thought that he had a subarachnoid hemorrhage, but a later MRI indicated cerebral amyloid angiopathy. At the time of that admission, the patient was not taking his warfarin. It was recommended that he stay off of anticoagulation. 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 ALLERGIES: No known medical allergies. PAST MEDICAL HISTORY: Including history of chief complaint, the patient also has a history of dyslipidemia, benign prostatic hypertrophy with urinary tract symptoms. He is a type 2 diabetic. SOCIAL HISTORY: He lives with his family. He is currently a nonsmoker. REVIEW OF SYSTEMS: A 10-point review of systems is negative except for the history of chief complaint. PHYSICAL EXAMINATION: GENERAL: He is alert but disoriented and nonverbal. VITAL SIGNS: Blood pressure is 120/70, pulse is regular at 70, he is afebrile. HEENT: He is normocephalic. Pupils are equal and reactive to light. Extraocular muscles are intact bilaterally. NECK: The neck veins are flat. Carotids have good upstrokes bilaterally without bruits. Thyroid is nonpalpable. RESPIRATORY: Breath sounds equal bilaterally and clear to auscultation. CARDIOVASCULAR: Heart has a regular rhythm. There are no systolic murmurs or rubs. No S3 or S4. GASTROINTESTINAL: Abdomen is soft, nontender without organomegaly. EXTREMITIES: Free of edema, digital clubbing, or cyanosis. NEUROLOGIC: Grossly intact. SKIN: Warm to touch. LYMPH NODES: Negative to palpation. LABORATORY DATA: Echocardiogram reveals an ischemic cardiomyopathy with evidence of an LV thrombus. The patient is currently in a sinus mechanism on the telemetry. Hemoglobin is 17, potassium is 3.8, creatinine is 1.3. Troponins are negative. IMPRESSION: 1. 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 2. Ischemic cardiomyopathy with evidence of left ventricular thrombus. 3. Diabetes mellitus. RECOMMENDATIONS: Due to the patient's cerebral amyloid angiopathy and possible previous history of a subarachnoid hemorrhage, I do not believe that he is a candidate for long-term anticoagulation. Neurology consult may help in this situation. From a cardiac standpoint, he appears to be stable. He has had no significant cardiac arrhythmias on the telemetry. I would recommend continued medical management for this patient.
[2017-05-21 11:52] VITALS: BP 94/56; PULSE 80; TEMP 36.8; O2SAT 95
--- NOTE | 2017-05-21 13:57 | Procedure Note ---
Post-Mod Sedation Assessment General Date of Moderate Sedation May 21, 2017. Vital Signs: Vital Signs Past 12 Hours Date Time Temp Pulse Resp B/P (MAP) Pulse Ox O2 Delivery O2 Flow Rate FiO2 05/21/17 11:52 36.8 80 18 94/56 (69) 95 Room Air 05/21/17 08:30 Room Air 05/21/17 07:51 36.8 77 16 100/56 (71) 93 Room Air 05/21/17 04:00 Room Air 05/21/17 03:51 36.5 71 16 103/58 (73) 95 Room Air Review - Discharge Criteria Vital Signs Stable: Yes Alert/Oriented/Conversant: Yes Returned to Baseline Mental St: Yes Pain/Discomfort/Absent/Minimal: Yes Normal/Baseline Respirations: Yes Active Bleeding?: No Pt Received D/C Instructions: N/A Prescriptions Given: None Specific Proced. D/C Criteria Distal Pulses Present (Cardiac: N/A Groin site assessed-Card Cath: N/A Voided Prior To Discharge: N/A Discharged Patients Adult Escort/Transportation: N/A
--- NOTE | 2017-05-21 13:58 | [facility] Post Operative Brief Note ---
Immediate Operative Summary Operative Date May 21, 2017. Pre-Operative Diagnosis sss Post-Operative Diagnosis same Procedure(s) Performed dual chamber rate responsive permanent pacemaker under fluroscopic guidance Surgeon antonina mo Client Success Director Surgeon(s) none Estimated Blood Loss <10cc Findings see official report Fluids (cc crystalloids) 100cc Specimens none Drains none Anesthesia 5mg versed and 125mcg fentantyl Complication(s) None Disposition PCU
[2017-05-21] MEDS ORDERED: ACETAMINOPHEN/CODEINE 300/30MG TAB PO PRN (14:00)
--- NOTE | 2017-05-21 14:03 | Progress Note ---
Internal Med Progress Note Date of Service: May 21, 2017. Provider Documentation: SUBJECTIVE: patient poor historian, cannot give history about his health, not oriented to the year, able to follow commands. Denies changes in vision Denies headache Denies nausea Denies vomiting Denies chest pain Denies shortness of breath Denies abdominal pain Denies diarrhea Denies dysuria OBJECTIVE: Exam: General-NAD, speaking in full sentences, on room air Eyes- EOMI, no jaundice ENT-nontender, no oral or nasal exudates Neck- nontender, no JVD Lungs- no crackles, no wheezing on lung auscultation. no use of accessory muscles Heart- regular rate, no murmurs appreciated Abdomen- soft, nontender to palpation Extremities- no edema of extremities Neuro- no focal neurological deficits ASSESSMENT & PLAN: Patient is an 81 yo male who presented to the hospital on 05/20/2017 after found to be feeling "dizzy" and collaborative history from patient's daughter in law of concern for bradycardia in the 40s. Patient placed on observation on telemetry after ED presentation. Telemetry monitoring did not reveal bradycardia. Throughout the telemetry studies heart rate generally in the 70s. Patient had transthoracic echo in the AM of 05/21/17. Was found to have an atrial thrombus. Patient is a poor historian who does not recall history of subarachnoid hemorrhage a year ago when treated in [facility] in [place]. Head CT on this admission did not show acute intracranial bleed on this admission. After consultation with cardiology and neurology services, it was determined that patient's risk of bleeding if started on anticoagulation is high. Despite the presence of atrial thrombus, patient's history of intracranial bleed and apparent inability to follow directions possible dementia precluded him from receiving anticoagulation for the thrombus. Patient's physical exam is benign, Patient able to breath on room air without shortness of breath, able to ambulate without syncopal symptoms. Disposition: without evidence for bradycardia, and since measures to anticoagulate patient may cause bleeding in a patient with previous history of subarachnoid hemorrhage there is no further hospital interventions at this time , patient can be discharged to home in care of his family and follow up with his primary care doctor Dr. Enrique [facility] 05/25/2017 11: 00 AM Below are the following studies performed on this admission and annotated results Chest X Ray An AP, portable, upright chest radiograph is compared to study dated 04/27/2017. The examination is degraded by portable technique and patient rotation. The heart is enlarged and there is atherosclerotic calcification of the thoracic aorta. Chronic interstitial thickening is similar to previous. Subpleural opacities are identified in the right upper lung. Bibasilar atelectasis is observed. No large pleural effusion or pneumothorax is seen. The skeletal structures are osteopenic. The bony thorax is grossly intact Head CT 1. No acute intracranial abnormality. 2. There are total of 3 punctate slightly hyperdense foci within the brain with the largest in the left temporal lobe measuring 5 mm. Given the long-term stability these are consistent with cavernomas. The trace subarachnoid hemorrhage within the left sylvian fissure on the prior study has resolved. No acute intracranial hemorrhage identified. 3. Mild sinus disease as described above. Transthoracic echo * Mildly dilated LV chamber size with global wall thinning. * Severely reduced LV systolic function with severe global hypokinesis, EF 20 -25%. * There is a large apical thrombus. * Mild to moderate mitral regurgitation. Left Ventricle * The left ventricle is mildly dilated. * There is a large apical thrombus. * There is global thinning of the left ventricular martinez. * Ejection Fraction = 20-25%. * Left ventricular systolic function is severely reduced. * There is severe global hypokinesis of the left ventricle. Right Ventricle * The right ventricular cavity size is normal (basal dimension <4.2 cm in right ventricular apical 4-chamber view). * The right ventricular systolic function is normal as assessed by tricuspid annular plane systolic excursion (TAPSE) (normal >1.5 cm). Atria * The left atrial size is normal. * Right atrial size is normal. * No ASD detected; PFO is not assessed. Mitral Valve * The mitral valve anatomy is normal. * There is no mitral valve stenosis. * There is mild to moderate mitral regurgitation. Tricuspid Valve * The tricuspid valve is normal in structure and function. Aortic Valve * The aortic valve is normal in structure and function. Pulmonic Valve * The pulmonary valve is not well seen, but the Doppler examination is normal without significant regurgitation or stenosis. Great Vessels * The aortic root is normal size. Pericardium/Pleural * There is no pericardial effusion. Vital Signs: Date Time Temp Pulse Resp B/P (MAP) Pulse Ox O2 Delivery O2 Flow Rate FiO2 05/21/17 11:52 36.8 80 18 94/56 (69) 95 Room Air 05/21/17 08:30 Room Air 05/21/17 07:51 36.8 77 16 100/56 (71) 93 Room Air 05/21/17 04:00 Room Air 05/21/17 03:51 36.5 71 16 103/58 (73) 95 Room Air 05/21/17 00:01 Room Air 05/20/17 23:48 36.8 66 18 103/74 (84) 95 Room Air 05/20/17 21:00 36.7 73 18 125/71 98 Room Air 05/20/17 19:00 75 05/20/17 18:46 134/81 05/20/17 18:30 75 87 05/20/17 18:00 76 19 96 05/20/17 17:51 77 05/20/17 17:31 66 18 134/81 96 Room Air 05/20/17 15:33 76 22 116/78 96 Room Air 82 111/74 84 101/74 05/20/17 14:33 36.5 82 18 121/71 95 Room Air Lab Results: Results Past 24 Hours Test 05/20/17 15:25 05/20/17 15:28 05/20/17 15:35 05/20/17 16:03 Range/Units Prothrombin Time 10.9 9.0-12.0 SECONDS Prothromb Time International Ratio 1.0 0.9-1.1 Activated Partial Thromboplast Time 27.0 21.0-31.0 SECONDS Partial Thromboplastin Ratio 1.0 White Blood Count 6.76 4.8-10.8 K/uL Red Blood Count 5.56 4.7-6.1 M/uL Hemoglobin 17.0 14.0-18.0 g/dL Hematocrit 49.7 42-52 % Mean Corpuscular Volume 89.4 80-100 fL Mean Corpuscular Hemoglobin 30.6 25-34 pg Mean Corpuscular Hemoglobin Concent 34.2 32-36 g/dl Platelet Count 145 130-400 K/uL Mean Platelet Volume 9.9 7.4-10.4 fL Neutrophils (%) (Auto) 63.5 % Lymphocytes (%) (Auto) 20.9 % Monocytes (%) (Auto) 12.1 % Eosinophils (%) (Auto) 2.5 % Basophils (%) (Auto) 0.4 % Neutrophils # (Auto) 4.29 1.4-6.5 K/uL Lymphocytes # (Auto) 1.41 1.2-3.4 K/uL Monocytes # (Auto) 0.82 0.11-0.59 K/uL Eosinophils # (Auto) 0.17 0-0.5 K/uL Basophils # (Auto) 0.03 0-0.2 K/uL RDW Standard Deviation 44.5 36.4-46.3 fL RDW Coefficient of Variation 13.7 11.5-14.5 % Immature Granulocyte % (Auto) 0.6 % Immature Granulocyte # (Auto) 0.04 0.00-0.02 K/uL Sodium Level 138 136-145 mmol/L Potassium Level 4.0 3.5-5.1 mmol/L Chloride Level 103 98-107 mmol/L Carbon Dioxide Level 28 21-32 mmol/L Anion Gap 7.0 3-11 mmol/L Blood Urea Nitrogen 21 7-18 mg/dl Creatinine 1.70 0.60-1.40 mg/dl Estimated GFR () 42.6 Estimated GFR (Non- 36.7 BUN/Creatinine Ratio 12.5 10-20 Random Glucose 186 70-99 mg/dl Calcium Level 8.7 8.5-10.1 mg/dl Total Bilirubin 0.6 0.2-1 mg/dl Direct Bilirubin < 0.1 0-0.2 mg/dl Aspartate Amino Transf (AST/SGOT) 17 15-37 U/L Alanine Aminotransferase (ALT/SGPT) 23 12-78 U/L Alkaline Phosphatase 82 45-117 U/L Total Protein 6.7 6.4-8.2 gm/dl Albumin 3.3 3.4-5.0 gm/dl Urine Color YELLOW Urine Appearance CLEAR CLEAR Urine pH 5.0 4.5-7.5 Urine Specific Hunter 1.025 1.000-1.030 Urine Protein NEG NEG Urine Glucose (UA) 3+ NEG Urine Ketones TRACE NEG Urine Occult Blood NEG NEG Urine Nitrite NEG NEG Urine Bilirubin NEG NEG Urine Urobilinogen NEG NEG Urine Leukocyte Esterase NEG NEG Bedside Troponin I < 0.030 0-0.045 ng/ml Test 05/20/17 20:22 05/21/17 00:14 05/21/17 05:26 05/21/17 08:38 Range/Units Bedside Glucose 120 70-99 mg/dl Total Creatine Kinase 79 63 39-308 U/L Creatine Kinase MB 3.1 2.5 0.5-3.6 ng/ml Creatine Kinase MB Ratio 3.9 4.0 0-3.0 Troponin I < 0.015 < 0.015 0-0.045 ng/ml Chemistry Specimen Hemolysis Sodium Level 141 136-145 mmol/L Potassium Level 3.8 3.5-5.1 mmol/L Chloride Level 108 98-107 mmol/L Carbon Dioxide Level 26 21-32 mmol/L Anion Gap 7.0 3-11 mmol/L Blood Urea Nitrogen 21 7-18 mg/dl Creatinine 1.30 0.60-1.40 mg/dl Est Creatinine Clear Calc Drug Dose 45.6 ml/min Estimated GFR () 58.9 Estimated GFR (Non- 50.8 BUN/Creatinine Ratio 15.9 10-20 Random Glucose 139 70-99 mg/dl Calcium Level 8.3 8.5-10.1 mg/dl Triglycerides Level 218 0-150 mg/dl Cholesterol Level 180 0-200 mg/dl HDL Cholesterol 27 mg/dl LDL Cholesterol, Calculated 109 mg/dl VLDL Cholesterol, Calculated 44 mg/dl Cholesterol/HDL Ratio 6.7 Test 05/21/17 13:06 Range/Units Bedside Glucose 167 70-99 mg/dl
[2017-05-21 14:24] VITALS: BP 94/56; PULSE 80; TEMP 36.8; O2SAT 95
--- NOTE | 2017-05-21 14:26 | Discharge Instructions ---
Discharge Instructions Date of Service May 21, 2017. Admission Reason for Admission: Bradycardia, Dizziness Discharge Discharge Diagnosis / Problem: atrial thrombus, history of subarrachnoid hemorrhage Discharge Goals Goal(s): Learn about illness Activity Recommendations Activity Limitations: per Instructions/Follow-up section Lifting Limitations: gradually increase as tolerated Exercise/Sports Limitations: until after follow-up appointment . Instructions / Follow-Up Instructions / Follow-Up follow up appointment with your primary care doctor Karl Enrique [facility] Continue with home medications Current Hospital Diet Patient's current hospital diet: AHA Diet (Heart Healthy), Diabetes Type 2 Diet Discharge Diet Recommended Diet: Diabetes Type 2 Diet Procedures Procedures Performed: dual chamber rate responsive permanent pacemaker under fluroscopic guidance Pending Studies Studies pending at discharge: no Laboratory Results Lipid Panel Test 05/21/17 05:26 Range/Units Triglycerides Level 218 H 0-150 mg/dl Cholesterol Level 180 0-200 mg/dl HDL Cholesterol 27 mg/dl Cholesterol/HDL Ratio 6.7 LDL Cholesterol, Calculated 109 mg/dl Medical Emergencies . Who to Call and When: Medical Emergencies: If at any time you feel your situation is an emergency, please call 911 immediately. . Non-Emergent Contact Non-Emergency issues call your: Primary Care Provider (Karl Enrique MD) Call Non-Emergent contact if: you have any medication questions . . "Provider Documentation" section prepared by Hamilton Berry. . VTE Core Measure Inpt VTE Proph given/why not?: Contraindicated (contradindicated to be on pharmacological anticoagulation)
--- NOTE | 2017-05-21 14:29 | Discharge Summary ---
Discharge Summary Date of Service May 21, 2017. Discharge Summary Admission Date: May 20, 2017 at 18:36 Discharge Date: May 21, 2017 Discharge Disposition: Home Principal Diagnosis: atrial thrombus, history of subarachnoid hemorrhage, high risk of intracranial bleed if on anticoagulation Secondary Diagnoses/Problems: diabetes Medication Reconciliation Continued Medications: Cholecalciferol (Vitamin D3) 1,000 Unit Tab 2000 UNITS PO DAILY Finasteride (Finasteride) 5 Mg Tab 5 MG PO QPM Furosemide (Lasix) 20 Mg Tab 20 MG PO UD PRN for EDEMA NEEDED FOR WEIGHT OVER 188 POUNDS Insulin Aspart (Novolog Flexpen) 100 Units/Ml Inj 8 UNITS SQ WM Insulin Glargine (Lantus Solostar) 100 Unit/Ml Inj 16 UNITS SQ HS Levothyroxine Sodium (Levothyroxine Sodium) 25 Mcg Tab 25 MCG PO DAILYBB Lorazepam (Lorazepam) 0.5 Mg Tab 1 TAB PO PRN for Anxiety/Insomnia, #40 Meclizine Hcl (Meclizine Hcl) 25 Mg Tab 1 TAB PO TID PRN for Dizziness or Vertigo for 10 Days, #30 TAB Nitroglycerin (Nitrostat) 0.4 Mg Tab 0.4 MG UT PRN, BTL Potassium Ext Rel (Klor-Con) 20 Meq Tabcr 20 MEQ PO UD PRN for EDEMA NEEDED FOR WEIGHT OVER 188 POUNDS Sitagliptin Phosphate (Januvia) 50 Mg Tab 50 MG PO QAM Tamsulosin HCl (Tamsulosin HCl) 0.4 Mg Cap 0.4 MG PO QAM Admission Information HPI (per Admitting provider): Patient is an 81 yo male who presented to the hospital for evaluation after he was found to be very dizzy at home today. His daughter in law states she checked his vitals and his BP was fine but his HR was in the 40's; she rechecked it again after several minutes and it was back up to normal but the patient continue to have dizziness. He had difficulty ambulating and had to grab onto objects to keep himself from falling. He states he feels much better now and wants to go home. He has not had any recent medication changes. The patients son and brother are there as well and state the patient is not one to complain unless things are really bothering him, but he has had no complaints in the days leading up to today. A few weeks ago he was seen in the ER for increased LE edema but no other symptoms. Patient denies any CP, SOB, palpitations, nausea, diaphoresis, SOLER, blurry vision. No recent changes to bowel or bladder habits. Appetite and weight have been stable. No recent falls or trauma. The patient has no other complaints. His family has not noticed any focal neurologic signs, he has dementia but he is at baseline with behavior and mentation. The patients daughter in law reports the patient is on finasteride and that seems to help lessen his habit of inappropriate groping of women, and she strongly encourages female staff to be aware that this has been an issue in the past, but the finasteride seems to help a bit. Physical Exam (per Admitting): General Appearance: WD/WN, no apparent distress Head: normocephalic, atraumatic Eyes: PERRL, EOMI, sclerae normal, + pertinent finding (no conjunctivael erythema; eyelids within normal limits) ENT: hearing grossly normal Neck: supple, no adenopathy, no JVD, no carotid bruits, trachea midline Respiratory/Chest: chest non-tender, no respiratory distress, no accessory muscle use, + decreased breath sounds, + crackles Cardiovascular: regular rate, rhythm, no edema, no gallop, no JVD, + systolic murmur, + extra beats Abdomen/GI: normal bowel sounds, non tender, soft, + pertinent finding (no hepatosplenomegaly) Back: no CVA tenderness, no muscle spasm Extremities/Musculoskelatal: normal inspection, no calf tenderness, normal capillary refill, no pedal edema Neurologic/Psych: no motor/sensory deficits, alert, normal mood/affect, oriented x 3 Skin: normal color, warm/dry, no rash Hospital Course Patient is an 81 yo male who presented to the hospital on 05/20/2017 after found to be feeling "dizzy" and collaborative history from patient's daughter in law of concern for bradycardia in the 40s. Patient placed on observation on telemetry after ED presentation. Telemetry monitoring did not reveal bradycardia. Throughout the telemetry studies heart rate generally in the 70s. Patient had transthoracic echo in the AM of 05/21/17. Was found to have an atrial thrombus. Patient is a poor historian who does not recall history of subarachnoid hemorrhage a year ago when treated in [facility] in [place]. Head CT on this admission did not show acute intracranial bleed on this admission. After consultation with cardiology and neurology services, it was determined that patient's risk of bleeding if started on anticoagulation is high. Despite the presence of atrial thrombus, patient's history of intracranial bleed and apparent inability to follow directions possible dementia precluded him from receiving anticoagulation for the thrombus. Patient's physical exam is benign, Patient able to breath on room air without shortness of breath, able to ambulate without syncopal symptoms. Disposition: without evidence for bradycardia, and since measures to anticoagulate patient may cause bleeding in a patient with previous history of subarachnoid hemorrhage there is no further hospital interventions at this time , patient can be discharged to home in care of his family and follow up with his primary care doctor Dr. Enrique [facility] 05/25/2017 11: 00 AM Below are the following studies performed on this admission and annotated results Chest X Ray An AP, portable, upright chest radiograph is compared to study dated 04/27/2017. The examination is degraded by portable technique and patient rotation. The heart is enlarged and there is atherosclerotic calcification of the thoracic aorta. Chronic interstitial thickening is similar to previous. Subpleural opacities are identified in the right upper lung. Bibasilar atelectasis is observed. No large pleural effusion or pneumothorax is seen. The skeletal structures are osteopenic. The bony thorax is grossly intact Head CT 1. No acute intracranial abnormality. 2. There are total of 3 punctate slightly hyperdense foci within the brain with the largest in the left temporal lobe measuring 5 mm. Given the long-term stability these are consistent with cavernomas. The trace subarachnoid hemorrhage within the left sylvian fissure on the prior study has resolved. No acute intracranial hemorrhage identified. 3. Mild sinus disease as described above. Transthoracic echo * Mildly dilated LV chamber size with global wall thinning. * Severely reduced LV systolic function with severe global hypokinesis, EF 20 -25%. * There is a large apical thrombus. * Mild to moderate mitral regurgitation. Left Ventricle * The left ventricle is mildly dilated. * There is a large apical thrombus. * There is global thinning of the left ventricular martinez. * Ejection Fraction = 20-25%. * Left ventricular systolic function is severely reduced. * There is severe global hypokinesis of the left ventricle. Right Ventricle * The right ventricular cavity size is normal (basal dimension <4.2 cm in right ventricular apical 4-chamber view). * The right ventricular systolic function is normal as assessed by tricuspid annular plane systolic excursion (TAPSE) (normal >1.5 cm). Atria * The left atrial size is normal. * Right atrial size is normal. * No ASD detected; PFO is not assessed. Mitral Valve * The mitral valve anatomy is normal. * There is no mitral valve stenosis. * There is mild to moderate mitral regurgitation. Tricuspid Valve * The tricuspid valve is normal in structure and function. Aortic Valve * The aortic valve is normal in structure and function. Pulmonic Valve * The pulmonary valve is not well seen, but the Doppler examination is normal without significant regurgitation or stenosis. Great Vessels * The aortic root is normal size. Pericardium/Pleural * There is no pericardial effusion. Total time spent on discharge = This includes examination of the patient, discharge planning, medication reconciliation, and communication with other providers. Discharge Instructions discharged to home in care of his family and follow up with his primary care doctor Dr. Enrique [facility] 05/25/2017 11:00 AM
[2017-05-21] MEDS ORDERED: METOPROLOL TARTRATE 25 MG TAB PO ONE (20:00)
--- NOTE | 2017-05-21 20:57 | CONSULTATION REPORT ---
DATE OF CONSULTATION: 05/21/2017 HISTORY OF PRESENT ILLNESS: I was asked by Dr. Hamilton Berry to give my opinion regarding anticoagulation in this patient. I had reviewed his [facility] chart as well as his inpatient chart and the patient was discharged per his desire prior to my seeing him. Dr. Berry asked me to render an opinion having reviewed his chart. He is an 81-year-old, who was admitted to the hospital yesterday for dizziness. His blood pressure was apparently normal and heart rate in the 40s. His electrocardiogram was notable for sinus rhythm with PVCs, left anterior fascicular block and poor R-wave progression. An echocardiography was performed, showed severe global hypokinesis with an EF of 20-25%. There is a large apical thrombus. On this basis, I was asked to weigh in about anticoagulation. Having reviewed the [facility] chart from June of 2016 at this facility and then the [facility] chart, he was admitted to our facility with difficulty with walking. He was confused. A CT of the head was performed and showed suspected trace subarachnoid hemorrhage along the left sylvian fissure. There appeared to be some intracranial calcifications. On the basis of that, the patient was transferred to [facility] as I recall he had a CTA of the head and neck which were noncontributory and an MRI of the brain which showed a multiplicity of micro hemorrhages thought to be consistent with amyloid angiopathy. At that time, I believe he had been on Jantoven with a subtherapeutic INR of 1.3. I believe a hypothesis that the patient had an amyloid angiopathy and they elected to stop Coumadin at that time. 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 SOCIAL HISTORY: I do not know the patient's social history in terms of with whom he lives. IMPRESSION: This is a difficult situation with the patient having a left atrial thrombus, although being in a sinus rhythm. Coumadin anticoagulants would potentially increase the risk of symptomatic intracranial hemorrhage 6-10 times at baseline in this pt with presumed amyloid angiopathy. The novel anticoagulants have less risk of intracranial hemorrhage, although at the same time are not easily reversible. If it was imperative for the patient to be anticoagulated for the short term, I would not have any objections to that provided his family was in agreement, knowing the high risk of symptomatic brain hemorrhage, to anticoagulating him without a heparin bolus, keeping his anticoagulation on the low side of therapeutic. I think he is at extremely high risk of symptomatic intracranial hemorrhage. As far as his fall risk, I cannot reliably comment as I am not aware of his social history. REHAN
== END 2017-05-21 14:50 | disposition home or self-care (01) ==
LOC: C.EDB 14:31 → C.2E 18:36 → ENRESERV 19:15
PROVIDERS: ADMIT Internal Medicine; ATTEND Hospitalist
DX: R42 Dizziness and giddiness (principal); E11.9 Type 2 diabetes mellitus without complications; I34.8 Other nonrheumatic mitral valve disorders; I25.2 Old myocardial infarction; E03.9 Hypothyroidism, unspecified; Z87.891 Personal history of nicotine dependence; R06.02 Shortness of breath; F03.90 Unspecified dementia, unspecified severity, without behavioral disturbance, psychotic disturbance, mood disturbance, and anxiety

== ENCOUNTER → 2018-01-26 | Outpatient (CLI) | payer OTHER ==
[~2018-01-26] MED LIST changes: +FURO-85 PO; +POTA-639 PO
[2018-01-26 09:03] LABS: BASO % 0.7 %; BASO ABS # 0.06 K/uL (0-0.2); EOS % 1.3 %; EOS ABS # 0.11 K/uL (0-0.5); HEMATOCRIT 49.9 % (42-52); HEMOGLOBIN 17.8 g/dL (14.0-18.0); IG# 0.11 K/uL (0.00-0.02); LYMPH % 24.2 %; LYMPH ABS # 2.11 K/uL (1.2-3.4); MEAN CELL VOLUME 85.7 fL (80-100); MEAN CORPUSCULAR HEMOGLOBIN 30.6 pg (25-34); MEAN CORPUSCULAR HGB CONC 35.7 g/dl (32-36); MEAN PLATELET VOLUME 10.1 fL (7.4-10.4); MONO % 9.6 %; MONO ABS # 0.84 K/uL (0.11-0.59); NEUT % 62.9 %; PLATELET COUNT 146 K/uL (130-400); RED CELL DISTRIBUTION WIDTH CV 15.1 % (11.5-14.5); RED CELL DISTRIBUTION WIDTH SD 47.5 fL (36.4-46.3); WHITE BLOOD COUNT 8.73 K/uL (4.8-10.8)
[2018-01-26 09:07] LABS: BLOOD UREA NITROGEN 24 mg/dl (7-18); CREATININE 1.56 mg/dl (0.60-1.40); GLUCOSE 113 mg/dl (70-99)
[2018-01-26 09:08] LABS: CALCIUM 8.5 mg/dl (8.5-10.1); CARBON DIOXIDE 26 mmol/L (21-32); POTASSIUM 4.2 mmol/L (3.5-5.1); SODIUM 140 mmol/L (136-145)
== END ==
LOC: C.LABCC 08:30
PROVIDERS: ATTEND Internal Medicine
DX: F01.50 Vascular dementia, unspecified severity, without behavioral disturbance, psychotic disturbance, mood disturbance, and anxiety (principal)

== ENCOUNTER → 2018-02-03 | Outpatient (CLI) | payer OTHER ==
[2018-02-03 10:04] LABS: BLOOD UREA NITROGEN 23 mg/dl (7-18); CALCIUM 8.2 mg/dl (8.5-10.1); CARBON DIOXIDE 24 mmol/L (21-32); GLUCOSE 126 mg/dl (70-99); POTASSIUM 3.9 mmol/L (3.5-5.1); SODIUM 138 mmol/L (136-145)
== END ==
LOC: C.LABCC 09:20
PROVIDERS: ATTEND Internal Medicine
DX: N18.3 Chronic kidney disease, stage 3 (moderate) (principal)